=== PATIENT | male | born 1980 | race Two or more races ===

== ENCOUNTER 2019-06-15 21:07 | Emergency (ER) | payer BC ==
[2019-06-15] MEDS ORDERED: LORazepam 0.5 MG Tab PO ONE (22:04)
[2019-06-15] MEDS ORDERED: Acetaminophen 325 MG Tab PO ONE (22:05)
--- NOTE | 2019-06-15 22:09 | EDM.PDOC ---
ED HPI GENERAL MEDICAL PROBLEM - General Chief Complaint: Lower Extremity Injury/Pain Stated Complaint: FOOT PAIN Time Seen by Provider: 06/15/19 21:36 Source of Information: Reports: Patient, RN Notes Reviewed - History of Present Illness INITIAL COMMENTS - FREE TEXT/NARRATIVE: 38 yr old male with bilat foot pain that started about 4 days ago. Was seen at [facility] yesterday, started on meloxicam. So far that is not helping. Aching, burning pain bilat feet, mostly plantar aspect front and back worse with wt bearing. Ankles, feet, knees, upper extrem all fine. 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 No fever or chills. No known health problems. Had normal labs at clinic yesterday. Bilateral Foot Pain Score (Numeric/FACES): 8 - Related Data Allergies Allergy/AdvReac Type Severity Reaction Status Date / Time No Known Allergies Allergy Verified 06/15/19 21:38 Home Meds: Home Meds LORazepam [Ativan] 0.5 mg PO BEDTIME #10 tablet 06/15/19 [Rx] Past Medical History - Past Health History Medical/Surgical History: Denies Medical/Surgical History Social & Family History - Tobacco Use Smoking Status *Q: Never Smoker - Caffeine Use Caffeine Use: Reports: None - Recreational Drug Use Recreational Drug Use: No Review of Systems - Review of Systems Review Of Systems: See Below Constitutional: Denies: Chills, Fever Eyes: Reports: No Symptoms Mouth/Throat: Reports: No Symptoms Respiratory: Denies: Shortness of Breath Cardiovascular: Denies: Chest Pain GI/Abdominal: Denies: Abdominal Pain Musculoskeletal: Reports: Foot Pain. Denies: Joint Pain Skin: Reports: No Symptoms Neurological: Reports: Numbness (occasional bilat feet) ED EXAM, GENERAL - Physical Exam Exam: See Below General Appearance: Alert, Mild Distress Eye Exam: Bilateral Eye: PERRL Throat/Mouth: Normal Inspection Head: Atraumatic. No: Facial Swelling Neck: Supple Respiratory/Chest: No Respiratory Distress Cardiovascular: Regular Rate, Rhythm Extremities: Other (there is tenderness of bilat feet base of big toe and also R foot ant. heel. No warmth or erythema). No: Joint Swelling, Leg Pain, Increased Warmth, Redness Skin Exam: Warm, Dry, Normal Color Course - Vital Signs Last Recorded V/S: Last Vital Signs Temp 97.8 F 06/15/19 21:31 Pulse 75 06/15/19 21:31 Resp 19 06/15/19 21:31 BP 145/92 H 06/15/19 21:31 Pulse Ox 99 06/15/19 21:31 - Orders/Labs/Meds Meds: Medications Discontinued Medications Generic Name Dose Route Start Last Admin Trade Name Marcia PRN Reason Stop Dose Admin Acetaminophen 975 mg 06/15/19 22:05 Tylenol PO 06/15/19 22:06 NOW ONE Lorazepam 0.5 mg 06/15/19 22:04 Ativan PO 06/15/19 22:05 ONETIME ONE - Re-Assessments/Exams Free Text/Narrative Re-Assessment/Exam: 06/15/19 22:23 no evidence for gout or other joint inflamation. this appears to repetitive stress, possible plantar fascitis. Did suggest inserts for boots, referral to Podiatry. Departure - Departure Time of Disposition: 22:04 Disposition: Home, Self-Care 01 Condition: Fair Clinical Impression: Foot pain, bilateral - Discharge Information Prescriptions: LORazepam [Ativan] 0.5 mg PO BEDTIME #10 tablet Referrals: PCP,None [Primary Care Provider] - Forms: ED Department Discharge Additional Instructions: continue meloxicam as prescribed. You may take tylenol or acetaminophen 1000 mg or two 500 mg tablets up to 3 times daily in addition for extra pain relief. Ativan 0. 5 mg at bedtime to help you sleep. Also try using padded inserts for your work boots. See Dr Landrum, Commercial Counsel [facility] next available appointment. Call for appointment tomorrow AM.
== END 2019-06-15 22:25 | disposition home or self-care (01) ==
LOC: JD.ED 21:07
DX: M79.672 Pain in left foot (principal); M79.671 Pain in right foot
CPT/HCPCS: 99283; A9270

== ENCOUNTER 2019-07-07 18:41 | Emergency (ER) | payer BC ==
[2019-07-07] MEDS ORDERED: FLU Vacc QS2019-20(6MOS+)/PF 60 MCG/0.5 ML SYRINGE IM ONE (19:15)
--- NOTE | 2019-07-07 19:33 | EDM.PDOC ---
ED HPI GENERAL MEDICAL PROBLEM - General Chief Complaint: Lower Extremity Injury/Pain Stated Complaint: BOTH FEET HURT-PT DOESN'T FEEL WELL Time Seen by Provider: 07/07/19 18:41 - History of Present Illness INITIAL COMMENTS - FREE TEXT/NARRATIVE: Revealed male presents emergency room with foot pain. This is getting bad enough that he's keeping him up at night. He is convinced the pain is coming from his feet he does not have back pain and pain radiating down from his back moving his back in different directions does not seem to make the pain worse the pain seems to be in his lower legs and his feet he were several parasitic work shoes and he has to keep changing them to relieve the discomfort and then at night he has difficulty getting to sleep because his feet hurt. Bilateral Feet Pain Score (Numeric/FACES): 8 - Related Data Allergies Allergy/AdvReac Type Severity Reaction Status Date / Time No Known Allergies Allergy Verified 07/07/19 19:01 Home Meds: Home Meds Naproxen Sodium [Naproxen Sodium ER] 500 mg PO Q12H #20 tablet.er 07/07/19 [Rx] Zolpidem [Ambien] 10 mg PO BEDTIME PRN #10 tab 07/07/19 [Rx] Past Medical History - Past Health History Medical/Surgical History: Denies Medical/Surgical History - Past Surgical History HEENT Surgical History: Reports: Naso-Sinus Surgery Social & Family History - Family History Family Medical History: Noncontributory - Tobacco Use Smoking Status *Q: Never Smoker Second Hand Smoke Exposure: No - Caffeine Use Caffeine Use: Reports: None - Recreational Drug Use Recreational Drug Use: No Review of Systems - Review of Systems Review Of Systems: See Below Constitutional: Reports: No Symptoms Eyes: Reports: No Symptoms Ears: Reports: No Symptoms Nose: Reports: No Symptoms Mouth/Throat: Reports: No Symptoms Respiratory: Reports: No Symptoms Cardiovascular: Reports: No Symptoms GI/Abdominal: Reports: No Symptoms Genitourinary: Reports: No Symptoms Musculoskeletal: Reports: No Symptoms Skin: Reports: No Symptoms Neurological: Reports: No Symptoms Psychiatric: Reports: No Symptoms ED EXAM, GENERAL - Physical Exam Exam: See Below Exam Limited By: No Limitations General Appearance: Alert, No Apparent Distress Respiratory/Chest: No Respiratory Distress, Lungs Clear, Normal Breath Sounds Cardiovascular: Normal Peripheral Pulses, Regular Rate, Rhythm, No Edema GI/Abdominal: Normal Bowel Sounds, Soft, Non-Tender Back Exam: Normal Inspection. No: CVA Tenderness (L), CVA Tenderness (R) Extremities: Other (He has tenderness within his feet feet do not have any erythematous or warmth areas that pain seems to be along the bottom of his feet. ) Lymphatic: No Adenopathy Course - Vital Signs Last Recorded V/S: Last Vital Signs Temp 36.7 C 07/07/19 18:57 Pulse 99 07/07/19 18:57 Resp 16 07/07/19 18:57 BP 142/89 H 07/07/19 18:57 Pulse Ox 99 07/07/19 18:57 - Orders/Labs/Meds Orders: Active Orders 24 hr Category Date Time Status Influenza Vaccine Charge [RC] .DISCHARGE Care 07/07/19 19:06 Active Meds: Medications Discontinued Medications Generic Name Dose Route Start Last Admin Trade Name Freq PRN Reason Stop Dose Admin Influenza Virus Vaccine 1 each 07/07/19 19:06 Pharmacy To Dose - Influenza Vaccine IM 07/07/19 19:07 ONETIME ONE Influenza Virus Vaccine 60 mcg 07/07/19 19:15 Fluzone Quad [id number] Syringe IM 07/07/19 19:16 .ONCE ONE - Re-Assessments/Exams Free Text/Narrative Re-Assessment/Exam: 07/07/19 19:31 Suspicious his pain was little more consistent with plantar fasciitis. He's having difficulty sleeping will put him on a short course of Ambien 10 mg at bedtime for one week. And then keep him on nonsteroidals he has follow-up with podiatry on the Departure - Departure Time of Disposition: 19:33 Disposition: Home, Self-Care 01 Clinical Impression: Bilateral foot pain, Plantar fasciitis, bilateral - Discharge Information Prescriptions: Naproxen Sodium [Naproxen Sodium ER] 500 mg PO Q12H #20 tablet.er Zolpidem [Ambien] 10 mg PO BEDTIME PRN #10 tab PRN Reason: Sleep Referrals: Mauro Landrum II, DPM [Primary Care Provider] - Additional Instructions: Return to the emergency room with any questions problems or worsening symptoms. Follow-up with podiatry as scheduled. Try some [id number] foot beds for your work shoes. Take the medication as directed allow 12 hours after using the Ambien to get good sleep and not be hung over with the medicine wears off. - My Orders Last 24 Hours: My Active Orders 07/07/19 19:06 Influenza Vaccine Charge [RC] .DISCHARGE - Assessment/Plan Last 24 Hours: My Active Orders 07/07/19 19:06 Influenza Vaccine Charge [RC] .DISCHARGE
== END 2019-07-07 19:52 | disposition home or self-care (01) ==
LOC: JD.ED 18:41
DX: M72.2 Plantar fascial fibromatosis (principal); Z23 Encounter for immunization
CPT/HCPCS: 90471; 90686; 99283; 99283-25

== ENCOUNTER 2019-07-29 06:16 | Emergency (ER) | payer BC ==
--- NOTE | 2019-07-29 07:20 | EDM.PDOC ---
ED HPI GENERAL MEDICAL PROBLEM - General Chief Complaint: Lower Extremity Injury/Pain Stated Complaint: FOOT PAIN Time Seen by Provider: 07/29/19 07:08 Source of Information: Reports: Patient History Limitations: Reports: No Limitations - History of Present Illness INITIAL COMMENTS - FREE TEXT/NARRATIVE: Patient is a 39-year-old male who presents with complaints of bilateral foot pain left greater than the right. This is an ongoing issue for him. He does see Dr. Landrum and Dr. Edgar and has a referral to neurology. He is currently taking Lyrica 3 times daily. He has come to the ER today because he is out of his Ambien. He has been prescribed 10 tablets of Ambien through the emergency department twice and he states this is the only way that he is able to sleep with the foot pain. He up until this point has not established care with a primary care provider and Dr. Edgar refused to prevent filled the prescription for Ambien. He does have an upcoming appointment with [place] in about 1 week. His appointment with neurology in [place] is not until August. - Related Data Allergies Allergy/AdvReac Type Severity Reaction Status Date / Time No Known Allergies Allergy Verified 07/29/19 06:26 Home Meds: Home Meds Pregabalin [Lyrica] 100 mg PO TID #30 cap 07/18/19 [Rx] Zolpidem Tartrate [Ambien] 5 mg PO BEDTIME #10 tablet 07/18/19 [Rx] Zolpidem [Ambien] 5 mg PO BEDTIME PRN #10 tab 07/29/19 [Rx] Past Medical History - Past Health History Medical/Surgical History: Denies Medical/Surgical History Cardiovascular History: Reports: None Respiratory History: Reports: None Gastrointestinal History: Reports: None Genitourinary History: Reports: None Musculoskeletal History: Reports: Other (See Below) Other Musculoskeletal History: Bilateral Feet Pain Neurological History: Reports: None Psychiatric History: Reports: None Endocrine/Metabolic History: Reports: None Hematologic History: Reports: None Immunologic History: Reports: None Oncologic (Cancer) History: Reports: None Dermatologic History: Reports: None - Infectious Disease History Infectious Disease History: Reports: None - Past Surgical History HEENT Surgical History: Reports: Naso-Sinus Surgery Social & Family History - Family History Family Medical History: Noncontributory - Tobacco Use Smoking Status *Q: Unknown Ever Smoked - Caffeine Use Caffeine Use: Reports: None Review of Systems - Review of Systems Review Of Systems: See Below Constitutional: Reports: No Symptoms Eyes: Reports: No Symptoms Ears: Reports: No Symptoms Nose: Reports: No Symptoms Mouth/Throat: Reports: No Symptoms Respiratory: Reports: No Symptoms Cardiovascular: Reports: No Symptoms GI/Abdominal: Reports: No Symptoms Genitourinary: Reports: No Symptoms Musculoskeletal: Reports: Foot Pain Skin: Reports: No Symptoms Neurological: Reports: No Symptoms Psychiatric: Reports: No Symptoms ED EXAM, GENERAL - Physical Exam Exam: See Below Exam Limited By: No Limitations General Appearance: Alert, WD/WN, No Apparent Distress Respiratory/Chest: No Respiratory Distress, Lungs Clear, Normal Breath Sounds, No Accessory Muscle Use, Chest Non-Tender Cardiovascular: Normal Peripheral Pulses, Regular Rate, Rhythm, No Murmur Extremities: Normal Inspection, Normal Range of Motion, No Pedal Edema, Normal Capillary Refill, Other (tender to the outer ball of the left foot) Neurological: Alert, Oriented, Normal Cognition Psychiatric: Normal Affect, Normal Mood Skin Exam: Warm, Dry, Intact, Normal Color, No Rash Course - Vital Signs Last Recorded V/S: Last Vital Signs Temp 98.0 F 07/29/19 06:27 Pulse 122 H 07/29/19 06:27 Resp 19 07/29/19 06:27 BP 133/97 H 07/29/19 06:27 Pulse Ox 94 L 07/29/19 06:27 - Re-Assessments/Exams Free Text/Narrative Re-Assessment/Exam: Patient is a 39-year-old male who presents with complaints of foot pain left greater than the right. This has been ongoing issue for him since May. This will be the fourth time he's been seen in the ER since that time. He is also followed up with Dr. Edgar and Dr. Landrum. He presents today requesting additional Ambien as he is out until he can sleep with his foot pain. I did discuss the importance of establishing care with a primary care provider as it is not generally the policy of the ER to refill medications. He states that he does have an upcoming appointment with Alexander Reyes in 1 week, however he feels that he will not be able to sleep until then. I did agree to give him Ambien 5 mg 10 tabs with the understanding that he will be following up with a primary care provider and that we will not be able to fill this medication through the emergency department in the future. He is in agreement with this plan. Discharge instructions as documented. Departure - Departure Time of Disposition: 07:23 Disposition: Home, Self-Care 01 Condition: Fair Clinical Impression: Foot pain, bilateral - Discharge Information *PRESCRIPTION DRUG MONITORING PROGRAM REVIEWED*: Yes *COPY OF PRESCRIPTION DRUG MONITORING REPORT IN PATIENT LANA: No Prescriptions: Zolpidem [Ambien] 5 mg PO BEDTIME PRN #10 tab PRN Reason: Sleep Instructions: Foot Pain Referrals: Alexander Reyes PA-C [Primary Care Provider] - Additional Instructions: You were seen in the emergency department today for ongoing foot pain and inability to sleep. A prescription for Ambien 5 mg 10 tabs has been sent to an [place] pharmacy in [facility]. Take this medication 1 tab as needed for sleep. It is important that she establish care with a primary care provider for future refills of your medications. You did verbalize that she have an appointment upcoming with Alexander Reyes. We do encourage you to keep this appointment as well as your upcoming appointment with neurology. If he should develop any new or worsening symptoms, please don't hesitate to return to the emergency department.
== END 2019-07-29 07:33 | disposition home or self-care (01) ==
LOC: JD.ED 06:16
DX: M79.672 Pain in left foot (principal); M79.671 Pain in right foot
CPT/HCPCS: 99283